=== PATIENT | female | born 1935 | race Caucasian/White ===

== ENCOUNTER → 2019-05-16 | Outpatient (CLI) | payer MEDICARE ==
--- NOTE | 2019-05-16 16:44 | PCVCIMAG ---
APPROVED REPORT Study performed: 05/16/2019 14:25:03 EXAM: Comprehensive 2D, Doppler, and color-flow Echocardiogram Patient Location: Echo lab Status: routine BSA: 1.50 HR: 53 bpmBP: 142/78 mmHg Rhythm: Bradycardia Other Information Study Quality: Adequate Risk Factors: Cardiac Risk Factors: HTN Indications Chest Pressure Dyspnea 2D Dimensions IVSd: 10.13 (7-11mm) LVDd: 45.84 mm PWd: 9.91 (7-11mm)Ascending Ao: 33.19 (22-36mm) LVDs: 31.68 (25-40mm) Left Atrium: 31.40 (27-40mm) Aortic Root: 33.25 mm LV Single Plane 4CH: 65.85 % LV Single Plane 2CH: 58.71 % Biplane EF: 61.5 % Volumes Left Atrial Volume (Systole) Single Plane 4CH: 51.21 mLSingle Plane 2CH: 52.81 mL LA ESV Index: 37.00 mL/m2 Aortic Valve AoV Peak Juan Jose.: 1.49 m/s AO Peak Gr.: 8.84 mmHgLVOT Max P.91 mmHg LVOT Max V: 1.22 m/s Mitral Valve E/A Ratio: 1.3 MV Decel. Time: 232.90 ms MV E Max Juan Jose.: 0.87 m/s MV A Juan Jose.: 0.68 m/s IVRT: 117.65 ms Pulmonary Valve PV Peak Juan Jose.: 0.95 m/sPV Peak Gr.: 3.59 mmHg Pulmonary Vein P Vein S: 0.37 m/sP Vein A: 0.35 m/s P Vein D: 0.54 m/sP Vein A Dur.: 145.3 msec P Vein S/D Ratio: 0.69 Tricuspid Valve TR Peak Juan Jose.: 2.68 m/s TR Peak Gr.: 28.76 mmHg Left Ventricle The left ventricle is normal size. There is normal LV segmental wall motion. There is normal left ventricular wall thickness. Left ventricular systolic function is normal. The left ventricular ejection fraction is within the normal range. LVEF is 60-65%. Grade I - abnormal relaxation pattern. Right Ventricle The right ventricle is normal size. The right ventricular systolic function is normal. Atria Left atrium is mildly dilated. The right atrium size is normal. Aortic Valve The aortic valve is normal in structure. Mild aortic regurgitation. There is no aortic valvular stenosis. Mitral Valve The mitral valve is normal in structure. Mild mitral regurgitation. No evidence of mitral valve stenosis. Mild bi-leaflet prolapse. Tricuspid Valve The tricuspid valve is normal in structure. Mild tricuspid regurgitation with PAP of 36 mmHg. Pulmonic Valve The pulmonary valve is normal in structure. There is no pulmonic valvular regurgitation. Great Vessels The aortic root is normal in size. IVC is normal in size and collapses >50% with inspiration. Pericardium There is a trivial right sided pericardial effusion. No tamponade physiology. There is no pleural effusion. <Conclusion> The left ventricle is normal size. LVEF is 60-65%. Grade I - abnormal relaxation pattern. The right ventricle is normal size. Left atrium is mildly dilated. Mild aortic regurgitation. Mild mitral regurgitation. Mild tricuspid regurgitation with PAP of 36 mmHg. The aortic root is normal in size. There is a trivial right sided pericardial effusion. No tamponade physiology.
== END | disposition home or self-care (01) ==
LOC: PCVCIMAG 14:17
PROVIDERS: ATTEND Internal Medicine Cardiovascular Disease
DX: I08.3 Combined rheumatic disorders of mitral, aortic and tricuspid valves (principal); F41.9 Anxiety disorder, unspecified; R06.02 Shortness of breath; I10 Essential (primary) hypertension; I65.23 Occlusion and stenosis of bilateral carotid arteries; E78.00 Pure hypercholesterolemia, unspecified; R53.83 Other fatigue; R06.00 Dyspnea, unspecified; R00.1 Bradycardia, unspecified; Z88.8 Allergy status to other drugs, medicaments and biological substances; Z72.89 Other problems related to lifestyle; Z79.899 Other long term (current) drug therapy; Z79.82 Long term (current) use of aspirin
CPT/HCPCS: 36415; 80061; 93005; 93306; G0463

== ENCOUNTER → 2019-05-29 | Outpatient (CLI) | payer MEDICARE ==
[~2019-05-29] MED LIST: REGADENOSON 0.4 MG/5 ML DISP.SYRIN. IV ONE
--- NOTE | 2019-05-30 10:03 | PCVCIMAG ---
APPROVED REPORT Imaging Protocol: Rest Tc-99m/Stress Tc-99m 1 day Study performed: 05/29/2019 13:34:26 Indication: Dyspnea, Chest pain Patient Location: Out-Patient Stress Nurse: Day Escobar RN, Crystal Flynn RN AR Tech:Ashley Shaun [facility] Ht: 5 ft 3 in Wt: 110 lbs BSA: 1.50 m2 HR: 55 bpm BP: 175/73 mmHg BMI: 19.4 Rhythm: Sinus Bradycardia, RBBB Medical History Medical History: Hyperlipidemia Medications: Aspirin, Amlodipine, Albuterol, Lipitor Allergies: Tetanus, Toxoid Cardiac Risk Factors: Age Pretest Chest Pain Characteristics: No chest pain Exercise History: Indeterminate Physical Disabilities: Back Resting Data Rest SPECT myocardial perfusion imaging was performed in supine position 45 minutes following the intravenous injection of 9.8 mCi of Tc-99m Sestamibi. Time of rest injection: 1330 Date: 05/29/2019 Administration Route: IV Administration Site: Right Arm Pharmacologic Stress Pharmacologic stress test was performed by injecting Regadenoson 0.4 mg IV push over 10-15 seconds immediately followed by the intravenous injection of 33.7 mCi of Tc-99m Sestamibi. Time of stress injection: 1430 Date: 05/29/2019 Administration Route: IV Administration Site: Right Arm Gated Stress SPECT was performed 45 minutes after stress injection. The images were gated to evaluate regional wall motion and calculate left ventricular ejection fraction. Stress Test Details Stress Test: Pharmacologic stress testing performed using 0.4 mg of regadenoson per 5 mL given IV over 10 seconds. Reason for pharmacologic stress test: physical limitation, back issues. HRMax Heart Rate (APMHR): 138 bpm Resting HR: 55 bpmTarget HR (85% APMHR): 117 bpm Max HR Achieved: 90 bpm % of APMHR: 65 Recovery HR: 82 bpm BP Resting BP: 175/73 mmHg Max BP: 160/68 mmHg Recovery BP: 139/64 mmHg ECG Resting ECG: Sinus Bradycardia, RBBB Stress ECG: Sinus Rhythm, RBBB Arrhythmia: PVC's Recovery ECG: Sinus Rhythm, RBBB Clinical Reason for Termination: Completed protocol Stress Symptoms: Dyspnea, Flushed Symptoms resolved with caffeine. Stress ECG Conclusion ECG: Non-ischemic Study Quality Study: Good Study Data Post stress, the left ventricular ejection was 69%.. SSS: 9 SRS: 5 SDS: 4 TID = 1.10. Perfusion Medium sized area of moderate reversible ischemia involving the mid/apical anterior left ventricle consistent with a left anterior descending distribution. sized area of severe reversible ischemia involving the left ventricle consistent with a distribution. 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 Wall Motion Normal left ventricular size and function with no regional wall motion abnormalities. Nuclear Conclusion Medium sized area of moderate reversible ischemia involving the mid/apical anterior left ventricle consistent with a left anterior descending distribution. Post stress, the left ventricular ejection was 69%. No prior study available for comparison. Interpreted by: Eugenio Moran MD Electronically Approved: 05/29/2019 22:14:49 <Conclusion> ECG: Non-ischemic
== END | disposition home or self-care (01) ==
LOC: PCVCIMAG 13:19
PROVIDERS: ATTEND Internal Medicine Cardiovascular Disease
DX: R07.89 Other chest pain (principal); R06.00 Dyspnea, unspecified; M19.90 Unspecified osteoarthritis, unspecified site
CPT/HCPCS: 78452; 93017; A9500; J2785